=== PATIENT | female | born 1965 | race Caucasian/White ===

== ENCOUNTER → 2018-03-24 | Outpatient (CLI) | payer OTHER ==
[~2018-03-24] MED LIST: PERCOCET PO; XARELTO10 MG PO; XARELTO15 MG PO
== END ==
LOC: CAT 08:52
DX: Z13.6 Encounter for screening for cardiovascular disorders (principal); E78.00 Pure hypercholesterolemia, unspecified

== ENCOUNTER → 2020-04-10 | Outpatient (CLI) | payer OTHER ==
[~2020-04-10] VITALS: Ht 177.8 cm; Wt 88.5 kg
[2020-04-10 14:05] VITALS: BP 118/62
[2020-04-10 14:44] LABS: ABSOLUTE NEUTROPHILS 4.2 thou/uL (1.4-8.2); BASOPHILS 0.8 % (0.0-2.0); EOSINOPHILS 1.6 % (0.0-3.0); HEMATOCRIT 35.2 % (37.0-47.0); HEMOGLOBIN 11.9 gm/dL (12.0-15.0); LYMPHOCYTES 37.2 % (24.0-44.0); MCH 29.7 pg (26.0-34.0); MCHC 33.8 g/dL (28.0-37.0); MCV 87.8 fL (80.0-100.0); MONOCYTES 6.7 % (1.0-8.0); PLATELET COUNT 307 thou/uL (150-400); POLYS 53.7 % (36.0-66.0); RBC 4.01 mil/uL (4.20-5.00); RDW 17.9 % (10.5-14.5); WBC 7.9 thou/uL (4.0-11.0)
[2020-04-10 14:59] LABS: % SATURATION 9 % (20-39); IRON 36 ug/dL (50-170); TIBC 415 ug/dL (250-450)
[2020-04-10 15:18] VITALS: BP 122/68
--- NOTE | 2020-04-10 15:32 | NUR ---
IN FOR 1ST OF 5 DAILY DOSES OF VENOFER FOR IRON DEFICIENCY ANEMIA. ADMISSION HISTORY AND ASSESSMENT COMPLETED. PATIENT TAKES NO MEDICATION AT THIS TIME. INFUSED VENOFER OVER 30 MINUTES AND TOLERATED WELL WITHOUT INCIDENT. POST BP GOOD. OBSERVED FOR 15 MINUTES AND THEN DISMISSED IN GOOD CONDITION. TO RETURN NEXT TUESDAY FOR 2ND INFUSION.
== END ==
LOC: OPONC 08:28
PROVIDERS: ATTEND Family Medicine
DX: D50.0 Iron deficiency anemia secondary to blood loss (chronic) (principal)
CPT/HCPCS: 95000

== ENCOUNTER → 2020-04-15 | Outpatient (CLI) | payer OTHER ==
[2020-04-15 13:10] VITALS: BP 124/70
[2020-04-15 14:00] VITALS: BP 116/60
--- NOTE | 2020-04-15 14:36 | NUR ---
IN FOR 2ND OF 5 VENOFER INFUSIONS. STATED HAD NO SIDE EFFECTS FROM 1ST DOSE LAST WEEK. IV PLACED IN LEFT HAND AND INFUSED VENOFER OVER 30 MINUTES. TOLERATED WELL. POST BP GOOD. OBSERVED FOR 20 MINUTES AND THEN DISMISSED IN GOOD CONDITION. TO RETURN TUESDAY FOR 3RD INFUSION.
== END ==
LOC: OPONC 08:57
PROVIDERS: ATTEND Family Medicine
DX: D50.0 Iron deficiency anemia secondary to blood loss (chronic) (principal); K90.49 Malabsorption due to intolerance, not elsewhere classified
CPT/HCPCS: 95000

== ENCOUNTER → 2020-04-18 | Outpatient (CLI) | payer OTHER ==
[2020-04-18 10:20] VITALS: BP 126/70
[2020-04-18 11:10] VITALS: BP 114/67
--- NOTE | 2020-04-18 16:05 | NUR ---
IN FOR 3RD OF 5 VENOFER INFUSIONS FOR IRON DEFICIENCY ANEMIA. PATIENT STATED NOT FEELING WELL OVER THIS LAST WEEK BUT FEELING BETTER TODAY. DENIED NAUSEA AND PAIN. IV PLACED IN RT HAND AND INFUSED VENOFER OVER 30 MINUTES. TOLERATED WELL. POST BP GOOD. REMOVED IV AND DISMISSED IN STABLE CONDITION.
== END ==
LOC: OPONC 07:47
PROVIDERS: ATTEND Family Medicine
DX: D50.0 Iron deficiency anemia secondary to blood loss (chronic) (principal)
CPT/HCPCS: 95000

== ENCOUNTER → 2020-04-23 | Outpatient (CLI) | payer OTHER ==
[2020-04-23 10:07] VITALS: BP 140/60
[2020-04-23 11:21] VITALS: BP 123/66
--- NOTE | 2020-04-23 11:35 | NUR ---
IN FOR VENOFER INFUSION FOR IRON DEFICIENCY ANEMIA. STATED FEELING WELL TODAY. TOLERATED INFUSION WITHOUT INCIDENT. POST BP GOOD. REMOVED IV AND DISMISSED IN GOOD CONDITION.
== END ==
LOC: OPONC 07:48
PROVIDERS: ATTEND Family Medicine
DX: D50.0 Iron deficiency anemia secondary to blood loss (chronic) (principal)
CPT/HCPCS: 95000

== ENCOUNTER → 2020-04-30 | Outpatient (CLI) | payer OTHER ==
[2020-04-30 11:15] VITALS: BP 129/62
[2020-04-30 11:43] VITALS: BP 123/66
--- NOTE | 2020-04-30 11:59 | NUR ---
HERE FOR FINAL VENOFER INFUSION (5TH). REPORTS TOLERATING ALL INFUSIONS WELL. PLANS TO SEE HER HABILITATION SPECIALIST DOC THIS WEEK ABOUT MANAGING HEAVY MENSES. WILL CALL DR. ELY TO SEE UP APPT IN A FEW WEEKS TO RECHECK LABS. TODAY'S INFUSION GIVEN WITHOUT INCIDENT, VSS. DISMISSED IN STABLE CONDITION.
== END ==
LOC: OPONC 04-25 14:59
PROVIDERS: ATTEND Family Medicine
DX: D50.0 Iron deficiency anemia secondary to blood loss (chronic) (principal)
CPT/HCPCS: 95000

== ENCOUNTER → 2021-01-15 | Outpatient (CLI) | payer OTHER | LOC: CAT 09:22 | PROVIDERS: ATTEND Family Medicine | DX: Z13.6 Encounter for screening for cardiovascular disorders (principal) ==